=== PATIENT | male | born 1990 | race Hispanic/Latino ===

== ENCOUNTER 2019-05-24 19:42 | Emergency (ER) | payer BC, OTHER ==
[2019-05-24] MEDS ORDERED: METHYLPREDNISOLONE SOD SUCC 40MG/ML 1ML ONE (19:52)
== END 2019-05-24 20:34 | disposition home or self-care (01) ==
LOC: EDH 19:42
DX: T63.441A Toxic effect of venom of bees, accidental (unintentional), initial encounter (principal); T78.3XXA Angioneurotic edema, initial encounter; J45.909 Unspecified asthma, uncomplicated; Z91.030 Bee allergy status; Y92.89 Other specified places as the place of occurrence of the external cause
CPT/HCPCS: 96374; 99284; J2920

== ENCOUNTER 2019-11-16 12:16 | Emergency (ER) | payer BC ==
[2019-11-16] MEDS ORDERED: OCTYL 2-CYANOACRYLATE 1 EACH TP ONE ×2 (13:13→13:15)
[2019-11-16] MEDS ORDERED: IBUPROFEN 800 MG TAB ONE (13:43)
== END 2019-11-16 13:49 | disposition home or self-care (01) ==
LOC: EDH 12:16
DX: S61.011A Laceration without foreign body of right thumb without damage to nail, initial encounter (principal); J45.909 Unspecified asthma, uncomplicated; W26.0XXA Contact with knife, initial encounter; Y93.H2 Activity, gardening and landscaping; Y92.096 Garden or yard of other non-institutional residence as the place of occurrence of the external cause; Y99.8 Other external cause status
CPT/HCPCS: 99282